=== PATIENT | female | born 1970 | race Caucasian/White ===

== ENCOUNTER 2019-03-23 16:17 | Emergency (ER) | payer SELFPAY ==
[~2019-03-23] VITALS: Ht 167.6 cm; Wt 102.1 kg
--- NOTE | 2019-03-23 16:40 | NUR ---
[facility]ON WARE AT BEDSIDE FOR MSE.
[2019-03-23] MEDS ORDERED: IBUPROFEN 800 MG TABLET ONE (16:49)
[2019-03-23] MEDS: IBUPROFEN 800 MG TABLET PO ONE (16:50)
[2019-03-23 16:52] VITALS: BP 146/88
--- NOTE | 2019-03-23 16:52 | NUR ---
Patient discharged to home in stable conditon. Written and verbal after care instructions given. Patient verbalizes understanding of instructions. ALL BELONGINGS W/ PT. PT SELF-AMBULATED W/O DIFFICULTY.
== END 2019-03-23 16:54 | disposition home or self-care (01) ==
LOC: ER 16:19
DX: S13.4XXA Sprain of ligaments of cervical spine, initial encounter (principal); E11.9 Type 2 diabetes mellitus without complications; E78.5 Hyperlipidemia, unspecified; Z88.8 Allergy status to other drugs, medicaments and biological substances; V49.9XXA Car occupant (driver) (passenger) injured in unspecified traffic accident, initial encounter; Y93.89 Activity, other specified; Y92.89 Other specified places as the place of occurrence of the external cause; Y99.8 Other external cause status
CPT/HCPCS: A4663